=== PATIENT | male | born 1940 | race Caucasian/White ===

== ENCOUNTER 2021-05-17 11:26 | Emergency (ER) | payer OTHER, MEDICARE ==
[2021-05-17 12:34] LABS: #Eosinphils 0.1 10x3/uL (0.0-0.5); #Monocytes 0.6 10x3/uL (0.0-1.1); #Neutrophils 4.8 10x3/uL (1.5-8.4); %Basophils 0.4 % (0.0-2.0); %Lymphocytes 19.5 % (18.0-47.0); %Monocytes 8.6 % (0.0-10.0); %Neutrophils 68.9 % (40.0-75.0); Mean Corpuscular HGB CONC 33.9 g/dL (32.0-36.0); Mean Corpuscular Hemoglobin 32.3 pg (27.0-33.0); Mean Corpuscular Volume 95.5 fl (81.2-95.1); Mean Platelet Volume 10.7 fl (7.4-10.4); Platelet Count 153 10x3/uL (150-450); RBC Distribution Width 12.9 % (11.5-14.5); Red Blood Cell (RBC) Count 4.64 10x6/uL (4.32-5.72)
[2021-05-17 12:43] LABS: ALT (SGPT) 17 U/L (8-55); AST (SGOT) 16 U/L (5-34); Albumin 4.2 g/dL (3.4-4.8); Alkaline Phosphatase 101 U/L (40-110); Anion Gap 12 mmol/L (10-20); BUN (Urea Nitrogen) 31 mg/dL (8.4-25.7); Bilirubin, Total 0.8 mg/dL (0.2-1.2); Calc. Creatinine Clearance 0 mL/min (70-130); Calcium 8.8 mg/dL (7.8-10.44); Carbon Dioxide 20 mmol/L (23-31); Chloride 110 mmol/L (98-107); Globulin 2.6 g/dL (2.4-3.5); Glucose 107 mg/dL (83-110); Potassium 4.9 mmol/L (3.5-5.1); Protein, Total 6.8 g/dL (5.8-8.1); Sodium 137 mmol/L (136-145)
[2021-05-17] MEDS ORDERED: Ondansetron PF 4 MG/2 ML Vial ONE (12:45)
[2021-05-17] MEDS ORDERED: Morphine 4 MG/ML VIAL ONE (12:45)
== END 2021-05-17 14:18 | disposition short-term general hospital (02) ==
LOC: CSHERS 11:26
DX: S72.031A Displaced midcervical fracture of right femur, initial encounter for closed fracture (principal); G70.00 Myasthenia gravis without (acute) exacerbation; E78.00 Pure hypercholesterolemia, unspecified; E78.5 Hyperlipidemia, unspecified; I10 Essential (primary) hypertension; Z87.891 Personal history of nicotine dependence; Z79.899 Other long term (current) drug therapy; W01.0XXA Fall on same level from slipping, tripping and stumbling without subsequent striking against object, initial encounter
CPT/HCPCS: 71045; 80053; 85025; 86850; 86900; 86901; 93005; 96374; 96375; J2270; J2405

== ENCOUNTER 2022-03-15 17:21 | Emergency (ER) | payer MEDICARE ==
[~2022-03-15 17:21] MED LIST: Iopamidol 370 76% 100 ML VIAL ONE
[2022-03-15 18:24] LABS: #Eosinphils 0.2 10x3/uL (0.0-0.5); #Monocytes 0.5 10x3/uL (0.0-1.1); #Neutrophils 3.2 10x3/uL (1.5-8.4); %Basophils 0.7 % (0.0-2.0); %Eosinophils 3.3 % (0.0-6.0); %Lymphocytes 31.9 % (18.0-47.0); %Monocytes 8.3 % (0.0-10.0); %Neutrophils 55.6 % (40.0-75.0); Hemoglobin 14.4 g/dL (13.5-17.5); Mean Corpuscular Hemoglobin 31.8 pg (27.0-33.0); Mean Corpuscular Volume 93.6 fl (81.2-95.1); Mean Platelet Volume 10.6 fl (7.4-10.4); Platelet Count 141 10x3/uL (150-450); Red Blood Cell (RBC) Count 4.53 10x6/uL (4.32-5.72); White Blood Cell (WBC) Count 5.8 10x3/uL (3.5-10.5)
[2022-03-15 18:35] LABS: ALT (SGPT) 16 U/L (8-55); AST (SGOT) 14 U/L (5-34); Albumin 4.1 g/dL (3.4-4.8); Alkaline Phosphatase 91 U/L (40-110); Anion Gap 11 mmol/L (10-20); BUN (Urea Nitrogen) 22 mg/dL (8.4-25.7); Calc. Creatinine Clearance 0 mL/min (70-130); Calcium 8.9 mg/dL (7.8-10.44); Carbon Dioxide 22 mmol/L (23-31); Chloride 112 mmol/L (98-107); Estimated GFR 60; Globulin 2.7 g/dL (2.4-3.5); Glucose 87 mg/dL (83-110); Potassium 4.5 mmol/L (3.5-5.1); Protein, Total 6.8 g/dL (5.8-8.1); Sodium 140 mmol/L (136-145)
[2022-03-15] MEDS ORDERED: diphenhydrAMINE 50 MG/ML VIAL ONE (18:59)
[2022-03-15] MEDS ORDERED: Famotidine/PF 20 mg/2ml Vial ONE (18:59)
[2022-03-15] MEDS ORDERED: methylPREDNISolone Sod Succ/PF 125 MG/2 ML VIAL ONE (18:59)
== END 2022-03-15 21:59 | disposition home or self-care (01) ==
LOC: CSHERS 17:21
DX: R06.02 Shortness of breath (principal); R91.8 Other nonspecific abnormal finding of lung field; E78.5 Hyperlipidemia, unspecified; I10 Essential (primary) hypertension
CPT/HCPCS: 71275; 80053; 83880; 84484; 85025; 93005; 96374; 96375; J1200; J2930; Q9967; S0028

== ENCOUNTER 2023-12-25 12:42 | Outpatient (CLI) | payer MEDICARE | END 2023-12-25 12:43 | disposition home or self-care (01) | LOC: CSHRAD 12:42 | PROVIDERS: ATTEND Family Medicine Sports Medicine | DX: M25.562 Pain in left knee (principal); M17.12 Unilateral primary osteoarthritis, left knee ==

== ENCOUNTER 2024-08-06 12:16 | Outpatient (CLI) | payer OTHER | END 2024-08-06 12:17 | disposition home or self-care (01) | LOC: CSHRAD 12:16 | PROVIDERS: ATTEND Family Medicine Sports Medicine | DX: M54.50 Low back pain, unspecified (principal); M47.816 Spondylosis without myelopathy or radiculopathy, lumbar region | CPT/HCPCS: 72100 ==